=== PATIENT | male | born 1940 ===

== ENCOUNTER 2019-05-26 07:32 | Day surgery (SDC) | payer MEDICARE ==
[2019-05-26] MEDS ORDERED: Lidocaine 1% MPF ** 5 ML VIAL ONE (08:26)
[2019-05-26] MEDS ORDERED: Tropicamide 1% OPTH.SOL* BTL ONE (08:26)
[2019-05-26] MEDS ORDERED: Midazolam* 1 MG/ML 2 ML VIAL (2 MG) ONE (08:26)
[2019-05-26] MEDS ORDERED: Cyclopentolate 1% OPTH.SOL* 2 ML BTL ONE (08:26)
[2019-05-26] MEDS ORDERED: acetaZOLAMIDE TAB* 250 MG ONE (08:26)
[2019-05-26] MEDS ORDERED: Ketorolac 0.5% OPHTH (NF) 0.5 % 5 ML BTL ONE (08:26)
[2019-05-26] MEDS ORDERED: Povidone Iodine 5% OPTH* 30 ML BTL ONE (08:26)
[2019-05-26] MEDS ORDERED: Neomycin/Polymy/Dex OPHTH.OIN* 3.5 GM ONE (08:26)
[2019-05-26] MEDS ORDERED: Tetracaine 0.5% OPTH.SOL 4 ML* 1 DROP BTL ONE (08:26)
[2019-05-26] MEDS ORDERED: Phenylephrine OPHTH SOL 2.5%* 2 ML ONE (08:26)
[2019-05-26 09:56] VITALS: BP 115/67
--- NOTE | 2019-05-26 11:55 | OP ---
DATE OF OPERATION: 05/26/19 - [facility] DATE OF : 42 SURGEON: Ryland Simon MD ANESTHESIA: Monitored anesthesia care. PREOPERATIVE DIAGNOSIS: Cataract, left eye with pseudoexfoliation. POSTOPERATIVE DIAGNOSIS: Cataract, left eye with pseudoexfoliation. OPERATIVE PROCEDURE: Extracapsular cataract extraction of the left eye with intraocular lens implant and placement of capsular tension ring . IMPLANT: SN60WF 18.5 diopter lens to the left eye and [place] reform capsular tension ring size 11 to the left eye. COMPLICATIONS: None. DESCRIPTION OF PROCEDURE: The patient was given phenylephrine 2.5 % and cyclopentolate 1% eye drops to the operative eye in the preoperative area. The patient was taken to the operating room where a time-out was taken to identify the correct patient, site, and side of surgery. The patient's left eye was prepped and draped in the usual sterile fashion with 5% Betadine. A second time -out was taken to verify the correct patient, side, and site of surgery and correct lens implant. A lid speculum was placed to the left eye. A 1 mm paracentesis blade was used to make a clear corneal incision in the inferior temporal position. Preservative-free 1% lidocaine was injected into the anterior chamber. DisCoVisc was then injected into the anterior chamber. A 2.75 cm keratome blade was used to make a triplanar incision at the superior temporal position. A Malyugin ring was then inserted due to poor pupil dilation. A cystotome initiated a capsulorrhexis, which was completed with Utrata forceps in a continuous and curvilinear manner. Hydrodissection of the lens was performed with BSS on a cannula. The lens could be spun in a capsular bag. The phacoemulsification handpiece was used with a [id number] technique to remove the nucleus. The I/A handpiece then removed the residual cortical lens material. DisCoVisc was injected to inflate the capsular bag. A size 11 capsular tension ring was then inserted due to the patient's pseudoexfoliation. The planned SN60WF 18.5 diopter lens was then injected into the capsular bag. The Malyugin ring was then removed from the anterior chamber and then the residual DisCoVisc was removed from the eye with the I/A handpiece. The corneal incisions were hydrated and no leaks occurred at physiologic pressure around 20 mmHg per palpation. The lid speculum was removed and drapes removed. Maxitrol ointment was placed to the surface of the operative eye. An adhesive patch and shield was then placed on the operative eye. The patient was taken to the postoperative area in stable condition. [id number]/[facility] #: [id number] MTDD
== END 2019-05-26 09:45 | disposition home or self-care (01) ==
LOC: OREAST 07:32
PROVIDERS: ATTEND Student in an Organized Health Care Education/Training Program
DX: H25.813 Combined forms of age-related cataract, bilateral (principal); H40.1421 Capsular glaucoma with pseudoexfoliation of lens, left eye, mild stage; I10 Essential (primary) hypertension; E78.00 Pure hypercholesterolemia, unspecified; M81.0 Age-related osteoporosis without current pathological fracture; Z71.3 Dietary counseling and surveillance; Z79.899 Other long term (current) drug therapy
CPT/HCPCS: A9270-GY; J2250; V2632